=== PATIENT | male | born 1995 | race Caucasian/White ===

== ENCOUNTER 2025-02-15 14:49 | Emergency (ER) | payer OTHER ==
[2025-02-15] MEDS: Ketorolac 30 MG/ML SDV IM ONE (15:27)
== END 2025-02-15 15:32 | disposition home or self-care (01) ==
LOC: JD.ED 14:49
DX: S01.01XA Laceration without foreign body of scalp, initial encounter (principal)
CPT/HCPCS: 12002; 96372; 99282; J1885